=== PATIENT | female | born 1990 | race Caucasian/White ===

== ENCOUNTER → 2017-01-22 | Outpatient (CLI) | payer BC, OTHER ==
[~2017-01-22] MED LIST: ATARAX25 MG PO; BENTYL10 MG PO; CIPRO250 MG PO; DEPO PROVER150 MG/ML IM; IBU-6600 MG PO; KEFLEX500 MG PO; MOTRIN800 MG PO; PREDNICOT20 MG PO; PREDNISONE20 MG PO; TRAMADOL HCL50 MG PO; VOLTAREN50 M1 PO; ZITHROMAX Z PA250 MG PO
== END | disposition home or self-care (01) ==
LOC: US 07:26
DX: R10.11 Right upper quadrant pain (principal)

== ENCOUNTER → 2017-01-30 | Outpatient (CLI) | payer BC, OTHER | END | disposition home or self-care (01) | LOC: NM 08:50 | DX: R10.11 Right upper quadrant pain (principal) ==

== ENCOUNTER → 2017-06-05 | Outpatient (CLI) | payer BC ==
[2017-06-06 16:10] LABS: TESTOSTERONE FREE, (DIRECT) 2.8 pg/mL (0.0-4.2)
== END | disposition home or self-care (01) ==
LOC: LAB 12:53
PROVIDERS: Family Medicine
DX: Z11.2 Encounter for screening for other bacterial diseases (principal); L68.0 Hirsutism; W57.XXXA Bitten or stung by nonvenomous insect and other nonvenomous arthropods, initial encounter

== ENCOUNTER → 2018-06-23 | Outpatient (CLI) | payer OTHER ==
[2018-06-23 16:22] LABS: ALKALINE PHOSPHATASE 62 U/L (45-117); BILIRUBIN, DIRECT < 0.1 mg/dL (0.0-0.2); BUN 6 mg/dl (7-24); CHLORIDE 105 mmol/L (98-107); CREATININE 0.68 mg/dL (0.55-1.02); POTASSIUM 4.3 mmol/L (3.5-5.1); SGOT/AST 16 IU/L (3-35); SGPT/ALT 22 U/L (12-78); SODIUM 139 mmol/L (136-145); TOTAL PROTEIN 7.7 gm/dL (6.4-8.2)
[2018-06-23 16:23] LABS: FREE T4 0.92 ng/dl (0.76-1.46)
[2018-06-24 05:06] LABS: THYROID PEROXIDASE (TPO) AB 10 IU/mL (0-34)
[2018-06-24 13:07] LABS: THYROGLOBULIN ANTIBODY <1.0 IU/mL (0.0-0.9)
== END | disposition home or self-care (01) ==
LOC: LAB 15:30
PROVIDERS: Obstetrics & Gynecology Reproductive Endocrinology
DX: E03.9 Hypothyroidism, unspecified (principal); E16.8 Other specified disorders of pancreatic internal secretion

== ENCOUNTER → 2018-07-04 | Outpatient (CLI) | payer OTHER | END | disposition home or self-care (01) | LOC: RAD 14:25 | DX: M25.571 Pain in right ankle and joints of right foot (principal) ==

== ENCOUNTER → 2018-08-07 | Outpatient (CLI) | payer OTHER ==
[2018-08-07 13:23] LABS: FREE T4 0.94 ng/dl (0.76-1.46)
[2018-08-07 13:29] LABS: THYROID STIM HORMONE (HS) 0.896 uIU/ml (0.358-4.75)
[2018-08-07 13:32] LABS: BETA-HCG, QUANT < 1.0 mIU/mL (1-3)
== END | disposition home or self-care (01) ==
LOC: LAB 12:22
DX: Z32.00 Encounter for pregnancy test, result unknown (principal); E03.9 Hypothyroidism, unspecified

== ENCOUNTER → 2018-10-27 | Outpatient (CLI) | payer OTHER ==
[2018-10-27 17:32] LABS: HEMATOCRIT 43.7 % (37.0-47.0); HEMOGLOBIN 14.9 g/dl (12.0-16.0); MEAN CORPUSCULAR HGB CONC 34.1 g/dl (33.0-37.0); MEAN PLATELET VOLUME 10.3 fl (9.6-12.3); RED BLOOD COUNT 4.65 10*6/uL (4.10-5.10); WHITE BLOOD COUNT 8.9 10*3/uL (4.8-10.8)
[2018-10-27 18:00] LABS: ALBUMIN 4.5 gm/dl (3.1-4.5); BUN 7 mg/dl (7-24); CHLORIDE 106 mmol/L (98-107); CREATININE 0.78 mg/dL (0.55-1.02); POTASSIUM 3.6 mmol/L (3.5-5.1); SGOT/AST 20 IU/L (3-35); SGPT/ALT 22 U/L (12-78); SODIUM 138 mmol/L (136-145); TOTAL PROTEIN 8.5 gm/dL (6.4-8.2)
[2018-10-27 18:04] LABS: ALKALINE PHOSPHATASE 64 U/L (45-117)
[2018-10-28 15:08] LABS: EPSTEIN-BARR VCA IGM AB <36.0 U/mL (0.0-35.9)
== END | disposition home or self-care (01) ==
LOC: LAB 16:51
PROVIDERS: Family Medicine
DX: E74.9 Disorder of carbohydrate metabolism, unspecified (principal); R53.83 Other fatigue

== ENCOUNTER → 2018-11-04 | Outpatient (CLI) | payer OTHER ==
[2018-11-04 13:21] LABS: FREE T4 0.92 ng/dl (0.76-1.46)
[2018-11-04 13:33] LABS: THYROID STIM HORMONE (HS) 1.94 uIU/ml (0.358-4.75)
[2018-11-05 06:10] LABS: TOTAL PROTEIN, SERUM 6.8 g/dL (6.0-8.5)
[2018-11-05 14:11] LABS: A/G RATIO 1.3 (0.7-1.7); ALBUMIN 3.8 g/dL (2.9-4.4); ALPHA-1-GLOBULIN 0.2 g/dL (0.0-0.4); ALPHA-2-GLOBULIN 0.8 g/dL (0.4-1.0); BETA GLOBULIN 0.9 g/dL (0.7-1.3); GAMMA GLOBULIN 1.1 g/dL (0.4-1.8); M-SPIKE Not Observed g/dL (Not Observed)
[2018-11-06 15:08] LABS: ALBUMIN, URINE 21.1 % (.); ALPHA-1-GLOBULIN, URINE 6.1 % (.); ALPHA-2-GLOBULIN, URINE 11.4 % (.); BETA GLOBULIN, URINE 33.6 % (.); GAMMA GLOBULIN, URINE 27.8 % (.); M-SPIKE, % Not Observed % (Not Observed); PROTEIN,TOTAL - URINE RANDOM 6.1 mg/dL (Not Estab.)
== END | disposition home or self-care (01) ==
LOC: LAB 12:10
PROVIDERS: Family Medicine
DX: Z32.01 Encounter for pregnancy test, result positive (principal); E03.9 Hypothyroidism, unspecified; E87.0 Hyperosmolality and hypernatremia

== ENCOUNTER → 2018-11-06 | Outpatient (CLI) | payer OTHER | END | disposition home or self-care (01) | LOC: LAB 13:02 | DX: Z32.01 Encounter for pregnancy test, result positive (principal); E03.9 Hypothyroidism, unspecified; E87.0 Hyperosmolality and hypernatremia ==

== ENCOUNTER → 2018-12-05 | Outpatient (CLI) | payer OTHER ==
[2018-12-05 12:37] LABS: FREE T4 0.96 ng/dl (0.76-1.46)
[2018-12-05 12:42] LABS: THYROID STIM HORMONE (HS) 1.48 uIU/ml (0.358-4.75)
== END | disposition home or self-care (01) ==
LOC: LAB 11:06
PROVIDERS: Family Medicine
DX: E03.9 Hypothyroidism, unspecified (principal)

== ENCOUNTER → 2018-12-08 | Outpatient (CLI) | payer OTHER | END | disposition home or self-care (01) | LOC: US 13:01 | DX: Z34.91 Encounter for supervision of normal pregnancy, unspecified, first trimester (principal); Z3A.09 9 weeks gestation of pregnancy ==

== ENCOUNTER → 2019-01-14 | Outpatient (CLI) | payer OTHER ==
[2019-01-14 21:33] LABS: FREE T4 1.14 ng/dl (0.76-1.46)
[2019-01-14 21:38] LABS: THYROID STIM HORMONE (HS) 0.764 uIU/ml (0.358-4.75)
== END | disposition home or self-care (01) ==
LOC: LAB 20:30
PROVIDERS: Family Medicine
DX: E03.9 Hypothyroidism, unspecified (principal)

== ENCOUNTER → 2019-03-26 | Outpatient (CLI) | payer OTHER ==
[2019-03-26 19:02] LABS: FREE T4 0.96 ng/dl (0.76-1.46)
[2019-03-26 19:08] LABS: THYROID STIM HORMONE (HS) 0.704 uIU/ml (0.358-4.75)
== END | disposition home or self-care (01) ==
LOC: LAB 18:02
PROVIDERS: Family Medicine
DX: E03.9 Hypothyroidism, unspecified (principal)

== ENCOUNTER → 2019-04-22 | Outpatient (CLI) | payer OTHER | END | disposition home or self-care (01) | LOC: LAB 01:08 | DX: Z34.03 Encounter for supervision of normal first pregnancy, third trimester (principal); Z3A.29 29 weeks gestation of pregnancy ==

== ENCOUNTER → 2019-05-01 | Outpatient (CLI) | payer OTHER ==
[2019-05-01 15:16] LABS: FREE T4 0.97 ng/dl (0.76-1.46)
[2019-05-01 15:21] LABS: THYROID STIM HORMONE (HS) 0.536 uIU/ml (0.358-4.75)
== END | disposition home or self-care (01) ==
LOC: LAB 13:53 → US 17:00
PROVIDERS: Family Medicine
DX: O24.419 Gestational diabetes mellitus in pregnancy, unspecified control (principal); Z3A.29 29 weeks gestation of pregnancy; E03.9 Hypothyroidism, unspecified

== ENCOUNTER → 2019-07-01 | Outpatient (CLI) | payer OTHER | END | disposition home or self-care (01) | LOC: US 11:10 | DX: Z34.93 Encounter for supervision of normal pregnancy, unspecified, third trimester (principal); Z3A.38 38 weeks gestation of pregnancy ==

== ENCOUNTER → 2019-08-10 | Outpatient (CLI) | payer OTHER ==
[2019-08-10 16:25] LABS: HEMATOCRIT 41.6 % (37.0-47.0); HEMOGLOBIN 13.7 g/dl (12.0-16.0); MEAN CELL VOLUME 93.7 fl (81.0-99.0); MEAN CORPUSCULAR HGB 30.9 pg (27.0-31.0); MEAN CORPUSCULAR HGB CONC 32.9 g/dl (33.0-37.0); RED BLOOD COUNT 4.44 10*6/uL (4.10-5.10); RED CELL DISTRI WIDTH 12.2 % (0-14.5); WHITE BLOOD COUNT 7.1 10*3/uL (4.8-10.8)
[2019-08-10 16:41] LABS: ALBUMIN 3.8 gm/dl (3.1-4.5); ALKALINE PHOSPHATASE 94 U/L (45-117); BUN 11 mg/dl (7-24); CHLORIDE 109 mmol/L (98-107); CHOLESTEROL 200 mg/dL (<200); CREATININE 0.82 mg/dL (0.55-1.02); HDL CHOLESTEROL 52 mg/dl (40-60); LDL CHOLESTEROL 103 mg/dL (9-159); POTASSIUM 3.9 mmol/L (3.5-5.1); SGOT/AST 27 IU/L (3-35); SGPT/ALT 40 U/L (12-78); SODIUM 141 mmol/L (136-145); TOTAL PROTEIN 7.7 gm/dL (6.4-8.2); TRIGLYCERIDES 227 mg/dl (<150); VLDL CHOLESTEROL 45 mg/dL (6-40)
[2019-08-10 16:42] LABS: FREE T4 0.97 ng/dl (0.76-1.46)
[2019-08-10 16:46] LABS: THYROID STIM HORMONE (HS) 0.881 uIU/ml (0.358-4.75)
== END | disposition home or self-care (01) ==
LOC: LAB 16:00
PROVIDERS: Family Medicine
DX: E03.9 Hypothyroidism, unspecified (principal); E55.9 Vitamin D deficiency, unspecified; R63.5 Abnormal weight gain; R53.83 Other fatigue

== ENCOUNTER → 2019-10-16 | Outpatient (CLI) | payer OTHER | LOC: LAB 18:28 | DX: E55.9 Vitamin D deficiency, unspecified (principal); R53.83 Other fatigue ==

== ENCOUNTER → 2020-01-20 | Outpatient (CLI) | payer BC | END | disposition home or self-care (01) | LOC: RAD 12:42 | DX: M17.11 Unilateral primary osteoarthritis, right knee (principal) ==

== ENCOUNTER → 2020-05-17 | Outpatient (CLI) | payer OTHER ==
[2020-05-17 17:30] LABS: FREE T4 0.89 ng/dl (0.76-1.46)
[2020-05-17 17:35] LABS: THYROID STIM HORMONE (HS) 1.53 uIU/ml (0.358-4.75)
== END | disposition home or self-care (01) ==
LOC: LAB 16:36
PROVIDERS: Family Medicine
DX: E03.9 Hypothyroidism, unspecified (principal)

== ENCOUNTER → 2020-07-19 | Outpatient (CLI) | payer OTHER ==
[2020-07-19 07:38] LABS: HEMATOCRIT 41.1 % (37.0-47.0); MEAN CELL VOLUME 95.1 fl (81.0-99.0); MEAN CORPUSCULAR HGB 31.3 pg (27.0-31.0); MEAN CORPUSCULAR HGB CONC 32.8 g/dl (33.0-37.0); MEAN PLATELET VOLUME 10.5 fl (9.6-12.3); RED BLOOD COUNT 4.32 10*6/uL (4.10-5.10); RED CELL DISTRI WIDTH 11.6 % (0-14.5); WHITE BLOOD COUNT 4.9 10*3/uL (4.8-10.8)
[2020-07-19 08:08] LABS: ALBUMIN 3.8 gm/dl (3.1-4.5); ALKALINE PHOSPHATASE 76 U/L (45-117); BUN 7 mg/dl (7-24); CHLORIDE 109 mmol/L (98-107); CHOLESTEROL 194 mg/dL (<200); CREATININE 0.77 mg/dL (0.55-1.02); HDL CHOLESTEROL 42 mg/dl (40-60); LDL CHOLESTEROL 112 mg/dL (9-159); POTASSIUM 3.8 mmol/L (3.5-5.1); SGOT/AST 10 IU/L (3-35); SGPT/ALT 15 U/L (12-78); SODIUM 140 mmol/L (136-145); TOTAL PROTEIN 7.6 gm/dL (6.4-8.2); TRIGLYCERIDES 202 mg/dl (<150); VLDL CHOLESTEROL 40 mg/dL (6-40)
[2020-07-19 08:36] LABS: VITAMIN D, 25-HYDROXY 19.5 ng/mL (30-100)
== END | disposition home or self-care (01) ==
LOC: LAB 06:49
PROVIDERS: ATTEND Family Medicine
DX: E03.9 Hypothyroidism, unspecified (principal); R53.83 Other fatigue; R00.2 Palpitations

== ENCOUNTER → 2020-07-27 | Outpatient (CLI) | payer OTHER | END | disposition home or self-care (01) | LOC: CARD 09:00 | PROVIDERS: ATTEND Family Medicine | DX: R00.1 Bradycardia, unspecified (principal); R42 Dizziness and giddiness ==

== ENCOUNTER → 2020-08-15 | Outpatient (CLI) | payer OTHER ==
[~2020-08-15] MED LIST changes: +AMOXICILLIN125 MG PO; +METFORMIN HCL500 M2 PO; +PROTONIX40 MG PO
== END | disposition home or self-care (01) ==
LOC: COVID19 00:48
PROVIDERS: ATTEND Surgery
DX: Z01.812 Encounter for preprocedural laboratory examination (principal); Z20.828 Contact with and (suspected) exposure to other viral communicable diseases

== ENCOUNTER → 2020-08-19 | Day surgery (SDC) | payer OTHER ==
[~2020-08-19] VITALS: Ht 154.9 cm; Wt 77.6 kg
[2020-08-19 09:15] VITALS: BP 107/65
[2020-08-19 11:13] VITALS: BP 117/67
[2020-08-19 11:28] VITALS: BP 102/56
[2020-08-19 11:43] VITALS: BP 114/68
== END ==
LOC: SDC 08-15 12:30
PROVIDERS: ATTEND Surgery
DX: K21.9 Gastro-esophageal reflux disease without esophagitis (principal); K29.50 Unspecified chronic gastritis without bleeding; E11.9 Type 2 diabetes mellitus without complications; Z90.89 Acquired absence of other organs; Z79.899 Other long term (current) drug therapy

== ENCOUNTER → 2021-01-18 | Outpatient (CLI) | payer OTHER | END | disposition home or self-care (01) | LOC: US 10:54 | PROVIDERS: ATTEND Nurse Practitioner Women's Health | DX: R10.2 Pelvic and perineal pain (principal) ==

== ENCOUNTER → 2021-06-09 | Outpatient (CLI) | payer OTHER ==
[2021-06-10 08:08] LABS: HEPATITIS B SURFACE AB Reactive (.)
[2021-06-10 14:08] LABS: MUMPS ANTIBODIES, IGG >300.0 AU/mL (Immune >10.9); VARICELLA-ZOSTER IGG 1491 index (Immune >165)
== END | disposition home or self-care (01) ==
LOC: LAB 10:18 → US 10:30
PROVIDERS: ATTEND Family Medicine
DX: Z02.0 Encounter for examination for admission to educational institution (principal); R22.1 Localized swelling, mass and lump, neck; Z72.89 Other problems related to lifestyle; Z79.899 Other long term (current) drug therapy

== ENCOUNTER → 2021-07-17 | Day surgery (SDC) | payer OTHER ==
[~2021-07-17] VITALS: Ht 154.9 cm; Wt 67.1 kg
[~2021-07-17] MED LIST changes: +EES400 MG PO; +PERCOCET 5-3251 EACH PO
[2021-07-17 09:15] VITALS: BP 106/68
[2021-07-17 10:17] VITALS: BP 94/68
[2021-07-17 10:30] VITALS: BP 91/59
[2021-07-17 10:46] VITALS: BP 91/64
== END | disposition home or self-care (01) ==
LOC: SDC 07-13 08:45
PROVIDERS: ATTEND Surgery
DX: D48.1 Neoplasm of uncertain behavior of connective and other soft tissue (principal); D36.7 Benign neoplasm of other specified sites; E03.9 Hypothyroidism, unspecified; I10 Essential (primary) hypertension; K21.9 Gastro-esophageal reflux disease without esophagitis; Z98.890 Other specified postprocedural states; Z90.89 Acquired absence of other organs; Z79.899 Other long term (current) drug therapy; Z20.822 Contact with and (suspected) exposure to COVID-19

== ENCOUNTER → 2022-01-30 | Outpatient (CLI) | payer OTHER ==
[2022-01-30 10:42] LABS: HEMATOCRIT 39.8 % (37.0-47.0); MEAN CELL VOLUME 94.8 fl (81.0-99.0); MEAN CORPUSCULAR HGB 32.6 pg (27.0-31.0); MEAN CORPUSCULAR HGB CONC 34.4 g/dl (33.0-37.0); MEAN PLATELET VOLUME 10.8 fl (9.6-12.3); RED BLOOD COUNT 4.2 10*6/uL (4.10-5.10); RED CELL DISTRI WIDTH 11.9 % (0-14.5); WHITE BLOOD COUNT 3.7 10*3/uL (4.8-10.8)
[2022-01-30 10:59] LABS: BUN 7 mg/dl (7-24); CHLORIDE 108 mmol/L (98-107); CHOLESTEROL 155 mg/dL (<200); CREATININE 0.76 mg/dL (0.55-1.02); POTASSIUM 3.7 mmol/L (3.5-5.1); SGOT/AST 19 IU/L (3-35); SGPT/ALT 18 U/L (12-78); SODIUM 141 mmol/L (136-145); TRIGLYCERIDES 198 mg/dl (<150)
[2022-01-30 11:05] LABS: ALKALINE PHOSPHATASE 53 U/L (45-117); LDL CHOLESTEROL 64 mg/dL (9-159); THYROID STIM HORMONE (HS) 0.837 uIU/ml (0.358-4.75); TOTAL PROTEIN 7.6 gm/dL (6.4-8.2)
[2022-01-30 11:34] LABS: VITAMIN D, 25-HYDROXY 9.6 ng/mL (30-100)
== END | disposition home or self-care (01) ==
LOC: LAB 10:28
PROVIDERS: ATTEND Family Medicine
DX: Z00.00 Encounter for general adult medical examination without abnormal findings (principal); E03.9 Hypothyroidism, unspecified; R05.9 Cough, unspecified; E55.9 Vitamin D deficiency, unspecified

== ENCOUNTER → 2022-05-31 | Outpatient (CLI) | payer BC | END | disposition home or self-care (01) | LOC: RAD 17:42 | PROVIDERS: ATTEND Family Medicine | DX: M79.672 Pain in left foot (principal) ==

== ENCOUNTER → 2022-08-06 | Outpatient (CLI) | payer BC ==
[2022-08-06 15:39] LABS: ALKALINE PHOSPHATASE 52 U/L (45-117); BUN 9 mg/dl (7-24); CHLORIDE 108 mmol/L (98-107); CREATININE 0.75 mg/dL (0.55-1.02); FREE T4 0.83 ng/dl (0.76-1.46); POTASSIUM 3.6 mmol/L (3.5-5.1); SGOT/AST 10 IU/L (3-35); SGPT/ALT 15 U/L (12-78); SODIUM 140 mmol/L (136-145); TOTAL PROTEIN 7.8 gm/dL (6.4-8.2)
== END | disposition home or self-care (01) ==
LOC: LAB 15:05
PROVIDERS: ATTEND Family Medicine
DX: E03.9 Hypothyroidism, unspecified (principal); R53.83 Other fatigue

== ENCOUNTER → 2022-10-18 | Outpatient (CLI) | payer BC | END | disposition home or self-care (01) | LOC: RAD 12:00 | PROVIDERS: ATTEND Family Medicine | DX: M79.671 Pain in right foot (principal) ==

== ENCOUNTER → 2023-04-17 | Outpatient (CLI) | payer BC ==
[2023-04-17 11:18] LABS: HEMATOCRIT 39.4 % (37.0-47.0); MEAN CELL VOLUME 92.7 fl (81.0-99.0); MEAN CORPUSCULAR HGB CONC 34.5 g/dl (33.0-37.0); MEAN PLATELET VOLUME 9.8 fl (9.6-12.3); RED BLOOD COUNT 4.25 10*6/uL (4.10-5.10); WHITE BLOOD COUNT 4.3 10*3/uL (4.8-10.8)
[2023-04-17 12:03] LABS: ALKALINE PHOSPHATASE 52 U/L (46-116); BUN 8 mg/dl (9-23); CHLORIDE 105 mmol/L (98-107); FREE T4 0.97 ng/dl (0.89-1.76); POTASSIUM 3.9 mmol/L (3.4-5.1); SGPT/ALT 11 U/L (10-49); THYROID STIM HORMONE (HS) 1.124 uIU/ml (0.550-4.780); TOTAL PROTEIN 7.4 gm/dL (6.0-8.0)
== END | disposition home or self-care (01) ==
LOC: LAB 10:52
PROVIDERS: ATTEND Family Medicine
DX: R53.83 Other fatigue (principal); L03.818 Cellulitis of other sites

== ENCOUNTER → 2023-09-09 | Outpatient (CLI) | payer OTHER ==
[2023-09-09 07:47] LABS: HEMATOCRIT 37.3 % (37.0-47.0); MEAN CELL VOLUME 91.4 fl (81.0-99.0); MEAN CORPUSCULAR HGB 29.2 pg (27.0-31.0); MEAN CORPUSCULAR HGB CONC 31.9 g/dl (33.0-37.0); MEAN PLATELET VOLUME 9.7 fl (9.6-12.3); RED BLOOD COUNT 4.08 10*6/uL (4.10-5.10); RED CELL DISTRI WIDTH 12.6 % (0-14.5); WHITE BLOOD COUNT 3.4 10*3/uL (4.8-10.8)
[2023-09-09 08:14] LABS: ALKALINE PHOSPHATASE 46 U/L (46-116); BUN 9 mg/dl (9-23); CHLORIDE 109 mmol/L (98-107); CHOLESTEROL 197 mg/dL (<200); LDL CHOLESTEROL 117 mg/dL (9-159); TOTAL PROTEIN 7.4 gm/dL (6.0-8.0); TRIGLYCERIDES 93 mg/dl (<150)
[2023-09-09 08:27] LABS: SGPT/ALT < 7 U/L (5-49)
== END | disposition home or self-care (01) ==
LOC: LAB 07:27
PROVIDERS: ATTEND Family Medicine
DX: Z00.00 Encounter for general adult medical examination without abnormal findings (principal); E78.00 Pure hypercholesterolemia, unspecified; E55.9 Vitamin D deficiency, unspecified; E74.00 Glycogen storage disease, unspecified; E74.9 Disorder of carbohydrate metabolism, unspecified; E03.9 Hypothyroidism, unspecified; F41.1 Generalized anxiety disorder

== ENCOUNTER → 2023-11-06 | Outpatient (CLI) | payer OTHER | END | disposition home or self-care (01) | LOC: US 01:36 | PROVIDERS: ATTEND Nurse Practitioner Women's Health | DX: N92.0 Excessive and frequent menstruation with regular cycle (principal) ==

== ENCOUNTER → 2024-01-27 | Outpatient (CLI) | payer OTHER | END | disposition home or self-care (01) | LOC: LAB 14:30 | PROVIDERS: ATTEND Nurse Practitioner Family | DX: R30.0 Dysuria (principal) ==

== ENCOUNTER → 2024-04-02 | Outpatient (CLI) | payer OTHER ==
[2024-04-02 07:42] LABS: HEMATOCRIT 36.3 % (37.0-47.0); MEAN CORPUSCULAR HGB 30.6 pg (27.0-31.0); MEAN CORPUSCULAR HGB CONC 32.5 g/dl (33.0-37.0); MEAN PLATELET VOLUME 9.7 fl (9.6-12.3); RED BLOOD COUNT 3.86 10*6/uL (4.10-5.10); RED CELL DISTRI WIDTH 13.2 % (0-14.5); WHITE BLOOD COUNT 7.1 10*3/uL (4.8-10.8)
[2024-04-02 08:24] LABS: ALKALINE PHOSPHATASE 39 U/L (46-116); BUN 6 mg/dl (9-23); CHLORIDE 104 mmol/L (98-107); POTASSIUM 3.7 mmol/L (3.4-5.1); SGPT/ALT 7 U/L (5-49); TOTAL PROTEIN 7.3 gm/dL (6.0-8.0)
[2024-04-02 08:28] LABS: VITAMIN D, 25-HYDROXY 113.9 ng/mL (30-100)
== END | disposition home or self-care (01) ==
LOC: LAB 07:31
PROVIDERS: ATTEND Family Medicine
DX: D72.819 Decreased white blood cell count, unspecified (principal); D64.9 Anemia, unspecified; E55.9 Vitamin D deficiency, unspecified

== ENCOUNTER → 2024-06-17 | Outpatient (CLI) | payer OTHER ==
[2024-06-17 08:02] LABS: HEMATOCRIT 34.7 % (37.0-47.0); MEAN CELL VOLUME 92.5 fl (81.0-99.0); MEAN CORPUSCULAR HGB 30.7 pg (27.0-31.0); MEAN CORPUSCULAR HGB CONC 33.1 g/dl (33.0-37.0); MEAN PLATELET VOLUME 9.4 fl (9.6-12.3); RED BLOOD COUNT 3.75 10*6/uL (4.10-5.10); RED CELL DISTRI WIDTH 12.1 % (0-14.5); WHITE BLOOD COUNT 5.6 10*3/uL (4.8-10.8)
[2024-06-17 08:40] LABS: ALKALINE PHOSPHATASE 42 U/L (46-116); BUN 7 mg/dl (9-23); CHLORIDE 105 mmol/L (98-107); FREE T4 1.27 ng/dl (0.89-1.76); SGPT/ALT 9 U/L (5-49); TOTAL PROTEIN 7.4 gm/dL (6.0-8.0)
== END | disposition home or self-care (01) ==
LOC: LAB 07:21
PROVIDERS: ATTEND Family Medicine
DX: M26.622 Arthralgia of left temporomandibular joint (principal); E55.9 Vitamin D deficiency, unspecified; E03.9 Hypothyroidism, unspecified

== ENCOUNTER → 2024-12-17 | Outpatient (CLI) | payer OTHER | END | disposition home or self-care (01) | LOC: RESCLI 09:01 | PROVIDERS: ATTEND Internal Medicine | DX: H66.90 Otitis media, unspecified, unspecified ear (principal); R11.0 Nausea; Z71.89 Other specified counseling; Z79.899 Other long term (current) drug therapy; Z98.890 Other specified postprocedural states; Z88.8 Allergy status to other drugs, medicaments and biological substances ==

== ENCOUNTER 2025-01-08 18:31 | Emergency (ER) | payer OTHER ==
[~2025-01-08] VITALS: Ht 154.9 cm; Wt 53.5 kg
[2025-01-08] MEDS ORDERED: METHOCARBAMOL500 M1 PO (20:19)
[2025-01-08] MEDS ORDERED: ZITHROMAX250 MG PO (22:08)
== END 2025-01-08 20:27 | disposition home or self-care (01) ==
LOC: ED 18:31
DX: R51.9 Headache, unspecified (principal); Z88.8 Allergy status to other drugs, medicaments and biological substances; Z88.1 Allergy status to other antibiotic agents; Z79.2 Long term (current) use of antibiotics; Z98.890 Other specified postprocedural states; Z90.89 Acquired absence of other organs; V89.2XXA Person injured in unspecified motor-vehicle accident, traffic, initial encounter; Y93.I9 Activity, other involving external motion; Y92.481 Parking lot as the place of occurrence of the external cause; Y99.8 Other external cause status

== ENCOUNTER → 2025-01-11 | Outpatient (CLI) | payer OTHER ==
[~2025-01-11] MED LIST changes: +METHOCARBAMOL500 M1 PO; +ZITHROMAX250 MG PO
== END | disposition home or self-care (01) ==
LOC: RESCLI 13:31
PROVIDERS: ATTEND Family Medicine
DX: S02.82XA Fracture of other specified skull and facial bones, left side, initial encounter for closed fracture (principal); X58.XXXA Exposure to other specified factors, initial encounter; Z98.890 Other specified postprocedural states; Z79.899 Other long term (current) drug therapy; Z88.8 Allergy status to other drugs, medicaments and biological substances

== ENCOUNTER → 2025-03-26 | Outpatient (CLI) | payer OTHER ==
[2025-03-26 08:02] LABS: BASO % 0.5 % (0.0-1.0); EOS % 0.5 % (1.0-4.0); HEMATOCRIT 37.7 % (37.0-47.0); MEAN CELL VOLUME 96.7 fl (81.0-99.0); MEAN CORPUSCULAR HGB 32.6 pg (27.0-31.0); MEAN CORPUSCULAR HGB CONC 33.7 g/dl (33.0-37.0); MEAN PLATELET VOLUME 9.5 fl (9.6-12.3); MONO # 0.4 10*3/uL (0.1-1.0); MONO % 9.6 % (3.0-9.0); NEUT # 2.2 10*3/uL (2.3-7.9); NEUT % 54.6 % (47.0-73.0); PLATELET COUNT AUTOMATED 241 10*3/uL (130-400); WHITE BLOOD COUNT 4.1 10*3/uL (4.8-10.8)
[2025-03-26 08:41] LABS: ALKALINE PHOSPHATASE 35 U/L (46-116); BUN 11 mg/dl (9-23); CHLORIDE 103 mmol/L (98-107); CHOLESTEROL 175 mg/dL (<200); LDL CHOLESTEROL 98 mg/dL (9-159); POTASSIUM 3.7 mmol/L (3.4-5.1); SGPT/ALT 10 U/L (5-49); TOTAL PROTEIN 7.1 gm/dL (6.0-8.0); TRIGLYCERIDES 117 mg/dl (<150)
== END | disposition home or self-care (01) ==
LOC: LAB 07:34
PROVIDERS: ATTEND Internal Medicine
DX: Z71.89 Other specified counseling (principal)

== ENCOUNTER → 2025-04-23 | Outpatient (CLI) | payer OTHER | END | disposition home or self-care (01) | LOC: LAB 15:35 | PROVIDERS: ATTEND Internal Medicine | DX: J02.9 Acute pharyngitis, unspecified (principal) ==

== ENCOUNTER → 2025-05-10 | Outpatient (CLI) | payer OTHER | END | disposition home or self-care (01) | LOC: RESCLI 08:52 | PROVIDERS: ATTEND Student in an Organized Health Care Education/Training Program | DX: H53.8 Other visual disturbances (principal); F32.9 Major depressive disorder, single episode, unspecified ==

== ENCOUNTER → 2025-05-11 | Outpatient (CLI) | payer OTHER | END | disposition home or self-care (01) | LOC: MRI 01:05 | PROVIDERS: ATTEND Internal Medicine | DX: H53.8 Other visual disturbances (principal) ==